=== PATIENT | female | born 1960 | race Caucasian/White ===

== ENCOUNTER 2017-07-19 20:09 | Emergency (ER) | payer OTHER, SELFPAY ==
[2017-07-19 20:13] VITALS: PULSE 104; RESP 20; TEMP 36.5; O2SAT 100
--- NOTE | 2017-07-19 20:18 | DI.RAD.S_ITS ---
PROCEDURE: XR RIBS BI MIN 4V W CXR1V INDICATIONS: fell forward on to chest, bilat rib pain TECHNIQUE: 5 views of the bilateral ribs were acquired, along with a single view chest. COMPARISON: [facility], , XR CHEST 2VW, 04/10/2015, 9:56. FINDINGS: Surgical changes and devices: None. Bones and chest wall: No displaced rib fracture identified. No suspicious bony lesions. Overlying soft tissues appear unremarkable. Lungs and pleura: No pleural effusions or pneumothorax. Lungs appear clear. Mediastinum: Mediastinal contours appear normal. Heart size is normal. IMPRESSION: 1. No displaced rib fracture identified. Dictated by: Antoine Khan M.D. on 07/19/2017 at 20:55 Approved by: Antoine Khan M.D. on 07/19/2017 at 21:04
--- NOTE | 2017-07-19 21:20 | ED.FALL ---
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 She denies any loss of consciousness, neck pain or back pain. She states she landed on the front of her chest and is worried about a fractured rib. She says is painful to take deep breaths. She has been taking ibuprofen and using ice for the pain. She states last time she fractured a rib and almost punctured her lungs so she is worried about that. She denies any shortness of breath, syncope, loss of consciousness, nausea, vomiting, diarrhea, headache. The pain is worst when she takes a deep breath and is localized on the frontal aspect of her rib cage on the left side. Related Data Allergies Allergy/AdvReac Type Severity Reaction Status Date / Time AMOXICILLIN Allergy Severe ANAPHYLAXIS, Uncoded 06/10/17 12:10 ITCHING, RASH, FACIAL SWELLING From LEVAQUIN Allergy Severe VOMITING Uncoded 06/10/17 12:10 MORPHINE Allergy Severe ANAPHYLAXIS Uncoded 06/10/17 12:10 OXYCODONE Allergy Severe ANAPHYLAXIS Uncoded 06/10/17 12:10 PENICILLIN Allergy Severe ANAPHYLAXIS Uncoded 06/10/17 12:10 SHELLFISH Allergy Severe ANAPHYLAXIS, Uncoded 06/10/17 12:10 MODERATE FACIAL SWELLING, ITCHING, RASH ASPARAGUS Allergy Intermediate ITCHING Uncoded 06/10/17 12:10 CEPHALOSPORIN Allergy Intermediate RASH, Uncoded 06/10/17 12:10 NAUSEA, VOMITING YOUNG Allergy Intermediate RASH, Uncoded 06/10/17 12:10 SWELLING MUSHROOM Allergy Intermediate RASH, Uncoded 06/10/17 12:10 HEADACHES CODEINE Allergy Unknown NAUSEA, Uncoded 06/10/17 12:10 VOMITING DARVOCET-N Allergy Unknown ITCHING, Uncoded 06/10/17 12:10 VOMITING ERYTHROMYCIN Allergy Unknown ITCHING, Uncoded 06/10/17 12:10 RASH, FACIAL SWELLING From DEMEROL Allergy Unknown HIVES Uncoded 06/10/17 12:10 From KEFLEX Allergy Unknown RASH, Uncoded 06/10/17 12:10 VOMITING From PERCOCET Allergy Unknown ITCHING, Uncoded 06/10/17 12:10 VOMITING From TORADOL Allergy Unknown MILD Uncoded 06/10/17 12:10 RESPIRATORY DISTRESS From VICODIN Allergy Unknown ITCHING, Uncoded 06/10/17 12:10 VOMITING IODINE Allergy Unknown ITCHING, Uncoded 06/10/17 12:10 RASH TYLOX Allergy Unknown RASH Uncoded 06/10/17 12:10 Review of Systems <[facility] - Last Filed: 07/19/17 22:45> Review of Systems GENERAL: See HPI HEENT: Denies sinus pain, ear pain, sore throat, difficulty swallowing, dizziness. RESPIRATORY: Denies dyspnea, cough, wheezing, hemoptysis, sputum. CARDIOVASCULAR: See HPI GASTROINTESTINAL: Denies nausea, vomiting, abdominal pain, diarrhea, constipation, melena. : Denies dysuria, frequency, incontinence, hematuria, urinary retention. MUSCULOSKELETAL: See HPI SKIN: Denies rash, skin lesions, or other NEUROLOGIC: Denies weakness, headache, numbness, change in speech, confusion, seizures, incoordination. PSYCHIATRIC: No concerning psychosocial issues. 12 point review of systems is negative except for those stated above Exam <[facility] - Last Filed: 07/19/17 22:45> Narrative Exam Narrative: GENERAL: This is a well-nourished, well-developed patient, no apparent distress sitting in chair HEAD: Atraumatic. Normocephalic. No temporal or scalp tenderness. EYES: Pupils equal round and reactive. Extraocular motions intact. No scleral icterus. No injection or drainage. ENT: Nose without bleeding, purulent drainage or septal hematoma. Throat without erythema, tonsillar hypertrophy or exudate. Uvula midline. Airway patent. NECK: Trachea midline. No JVD or lymphadenopathy. Supple, nontender, no meningeal signs. CARDIOVASCULAR: Regular rate and rhythm without murmurs, gallops, or rubs. RESPIRATORY: Clear to auscultation. Breath sounds equal bilaterally. No wheezes, rales, or rhonchi. GASTROINTESTINAL: Abdomen soft, non-tender, nondistended. No hepato-splenomegaly, or palpable masses. No guarding. Nonrigid. EXTREMITIES: No clubbing, cyanosis, or edema. No joint tenderness, effusion, or edema noted. BACK: Nontender without deformity or crepitance. No flank tenderness. No pain on C-spine or spinal palpation. NEURO: AOx3. SKIN: No rash or erythema. No ecchymosis, erythema or swelling noted on rib cage. CHEST WALL: Patient has pain on anterior posterior and lateral compression of chest wall. She has pain on palpation of left-sided ribs. Initial Vital Signs Initial Vital Signs: Vital Signs Temperature 97.7 F 07/19/17 20:13 Pulse Rate 104 H 07/19/17 20:13 Respiratory Rate 20 07/19/17 20:13 Pulse Oximetry 100 07/19/17 20:13 <Davion Cody MD - Last Filed: 07/31/17 08:31> Initial Vital Signs Initial Vital Signs: Vital Signs Temperature 97.7 F 07/19/17 20:13 Pulse Rate 104 H 07/19/17 20:13 Respiratory Rate 20 07/19/17 20:13 Pulse Oximetry 100 07/19/17 20:13 Course <JOYA Graham - Last Filed: 07/19/17 22:45> Hospital Course: Patient presents complaining of rib pain after fall. X-rays were obtained. She remained hemodynamically stable throughout her stay. She was offered ibuprofen, but she just took some prior to arrival. She had no questions or concerns upon discharge. Orders Ordered: ED Orders 07/19/17 20:18 XR ribs BI min 4V w CXR1V Stat Vital Signs - 8 hr 07/19/17 20:13 Temperature 97.7 F Pulse Rate 104 H Respiratory Rate 20 Pulse Oximetry 100 <Davion Cody MD - Last Filed: 07/31/17 08:31> Orders Ordered: ED Orders 07/19/17 20:18 XR ribs BI min 4V w CXR1V Stat Vital Signs - 8 hr 07/19/17 20:13 Temperature 97.7 F Pulse Rate 104 H Respiratory Rate 20 Pulse Oximetry 100 MDM - Fall <JOYA Graham - Last Filed: 07/19/17 22:45> Imaging Data Chest x-ray: Radiologist's impression: [address] [address] XRay Report Signed Patient: Suyapa Connor MR#: [id number] : 1960 Acct:[id number] Age/Sex: 56 / F Date of Service: 07/19/17 Loc: ED Accession Number: [id number] Procedure: XR ribs BI min 4V w CXR1V Ordering Provider: Davion Cody M.D. PROCEDURE: XR RIBS BI MIN 4V W CXR1V INDICATIONS: fell forward on to chest, bilat rib pain TECHNIQUE: 5 views of the bilateral ribs were acquired, along with a single view chest. COMPARISON: [facility], , XR CHEST 2VW, 04/10/2015, 9:56. FINDINGS: Surgical changes and devices: None. Bones and chest wall: No displaced rib fracture identified. No suspicious bony lesions. Overlying soft tissues appear unremarkable. Lungs and pleura: No pleural effusions or pneumothorax. Lungs appear clear. Mediastinum: Mediastinal contours appear normal. Heart size is normal. IMPRESSION: 1. No displaced rib fracture identified. Dictated by: Antoine Khan M.D. on 07/19/2017 at 20:55 Approved by: Antoine Khan M.D. on 07/19/2017 at 21:04 [facility] Narrative Medical decision making narrative: Patient presented after fall from lawdcower. She requested an x-ray to check for any rib fractures. An x-ray showed no displaced rib fractures at this time. She declined any further workup. She has been hemodynamically stable since her fall. She denies hitting her head or any neck or back pain. I discussed at length with her coming back for shortness of breath, dizziness, lightheadedness or chest pain. 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 She had no questions or concerns upon discharge. She will plan on taking [id number] pain medication as she is able given her allergies as well as using ice and rest. She will call her primary care provider tomorrow to arrange follow-up. Discharge Plan Departure Patient Disposition: Home, Self-Care Clinical Impression: Contusion Discharge Date/Time: 07/19/17 21:50 Interventions: ED Discharge Assessment Last Done: 07/19/17 21:49 Instructions: DI for Contusion, DI for Rib Contusion, DI for Sternum Contusion Activity Restrictions/Additional Instructions: Your x-ray showed no abnormality today. I suggest continued rest, ice, heat, [id number] pain medications as able. Follow up if you're not feeling better or if you are feeling worse. Definitely come back for any chest pain, shortness of breath, or any other acute concerns. Be sure to keep taking deep breaths as you can as we do not want you to developed pneumonia from not taking deep breaths. Referrals: Amol Mccartney MD [Primary Care Provider] - <Davion Cody MD - Last Filed: 07/31/17 08:31> Cosign ED Attending Cosignature Attestation: The PA/DANDY OPERATOR functioned independently for the care of this pt, I was available, but not asked to participate in care. I am unable to determine appropriateness of management without personally examining the pt.
== END 2017-07-19 21:50 | disposition home or self-care (01) ==
PROVIDERS: Emergency Provider Nurse Practitioner Family
DX: S20.219A Contusion of unspecified front wall of thorax, initial encounter (principal); W19.XXXA Unspecified fall, initial encounter
CPT/HCPCS: 71111; 99282; 99283

== ENCOUNTER 2018-07-28 19:02 | Emergency (ER) | payer OTHER, SELFPAY ==
[2018-07-28 19:12] VITALS: BP 132/86; PULSE 90; RESP 18; TEMP 36.1; O2SAT 98; BMI 39.1
[2018-07-28] MEDS: TET,DIPH,PERTUSS(ACELL),VAC/PF 0.5 ML SYRINGE IM (21:35)
[2018-07-28 22:02] VITALS: BP 119/77; PULSE 94; RESP 16; O2SAT 97
--- NOTE | 2018-07-28 22:20 | ED_ITS ---
HPI - Wound/Laceration <Madie De La Cruz, [employer] - Last Filed: 07/28/18 22:19> General Chief Complaint: Wound/Laceration Stated Complaint: left heel laceration x40 minutes Time Seen by Provider: 07/28/18 20:59 Source: patient Mode of arrival: ambulatory Limitations: no limitations History of Present Illness HPI narrative: The patient is a 57-year-old female current smoker with history rib contusion who presents with a chief complaint of a laceration to the left heel. She states that she cut it on a door at a restaurant. She does not or last tetanus was. She states she has full range of motion. She has no concern for body. She has not washed. She has iced it. Related Data Allergies Allergy/AdvReac Type Severity Reaction Status Date / Time AMOXICILLIN Allergy Severe ANAPHYLAXIS, Uncoded 06/10/17 12:10 ITCHING, RASH, FACIAL SWELLING From LEVAQUIN Allergy Severe VOMITING Uncoded 06/10/17 12:10 MORPHINE Allergy Severe ANAPHYLAXIS Uncoded 06/10/17 12:10 OXYCODONE Allergy Severe ANAPHYLAXIS Uncoded 06/10/17 12:10 PENICILLIN Allergy Severe ANAPHYLAXIS Uncoded 06/10/17 12:10 SHELLFISH Allergy Severe ANAPHYLAXIS, Uncoded 06/10/17 12:10 MODERATE FACIAL SWELLING, ITCHING, RASH ASPARAGUS Allergy Intermediate ITCHING Uncoded 06/10/17 12:10 CEPHALOSPORIN Allergy Intermediate RASH, Uncoded 06/10/17 12:10 NAUSEA, VOMITING YOUNG Allergy Intermediate RASH, Uncoded 06/10/17 12:10 SWELLING MUSHROOM Allergy Intermediate RASH, Uncoded 06/10/17 12:10 HEADACHES CODEINE Allergy Unknown NAUSEA, Uncoded 06/10/17 12:10 VOMITING DARVOCET-N Allergy Unknown ITCHING, Uncoded 06/10/17 12:10 VOMITING ERYTHROMYCIN Allergy Unknown ITCHING, Uncoded 06/10/17 12:10 RASH, FACIAL SWELLING From DEMEROL Allergy Unknown HIVES Uncoded 06/10/17 12:10 From KEFLEX Allergy Unknown RASH, Uncoded 06/10/17 12:10 VOMITING From PERCOCET Allergy Unknown ITCHING, Uncoded 06/10/17 12:10 VOMITING From TORADOL Allergy Unknown MILD Uncoded 06/10/17 12:10 RESPIRATORY DISTRESS From VICODIN Allergy Unknown ITCHING, Uncoded 06/10/17 12:10 VOMITING IODINE Allergy Unknown ITCHING, Uncoded 06/10/17 12:10 RASH TYLOX Allergy Unknown RASH Uncoded 06/10/17 12:10 Review of Systems <JOYA Graham - Last Filed: 07/28/18 22:19> Review of Systems GENERAL: Denies chills, fatigue, malaise, fever, sweats. HEENT: Denies sinus pain, ear pain, sore throat, difficulty swallowing, dizziness. RESPIRATORY: Denies dyspnea, cough, wheezing, hemoptysis, sputum. CARDIOVASCULAR: Denies chest pain, palpitations, orthopnea, edema, GASTROINTESTINAL: Denies nausea, vomiting, abdominal pain, diarrhea, constipation, melena. : Denies dysuria, frequency, incontinence, hematuria, urinary retention. MUSCULOSKELETAL: denies weakness, joint pain, or bony pain SKIN: See HPI NEUROLOGIC: Denies weakness, headache, numbness, change in speech, confusion, seizures, incoordination. PSYCHIATRIC: No concerning psychosocial issues. 12 point review of systems is negative except for those stated above PFSH <JOYA Graham - Last Filed: 07/28/18 22:19> Social History Smoking Status: Current some day smoker Social History Smoking Status: Current some day smoker Exam <JOYA Graham - Last Filed: 07/28/18 22:19> Narrative Exam Narrative: GENERAL: This is a well-nourished, well-developed patient, in no acute distress HEAD: Atraumatic. Normocephalic. No temporal or scalp tenderness. EYES: Pupils equal round and reactive. Extraocular motions intact. No scleral icterus. No injection or drainage. ENT: Nose without bleeding, purulent drainage or septal hematoma. Throat without erythema, tonsillar hypertrophy or exudate. Uvula midline. Airway patent. NECK: Trachea midline. No JVD or lymphadenopathy. Supple, nontender, no meningeal signs. CARDIOVASCULAR: Regular rate and rhythm RESPIRATORY: No cough. No increased respiratory effort. No accessory muscle use. EXTREMITIES: Positive pedal pulses left foot. Full range of motion noted left foot. BACK: Nontender without deformity or crepitance. No flank tenderness. NEURO: AOx3. SKIN: 1.5 by 0.25 cm avulsion to left heel. no redness or pus. Through dermis. No obvious foreign body. No muscle or tendon involvement. Initial Vital Signs Initial Vital Signs: Vital Signs Temperature 97 F L 07/28/18 19:12 Pulse Rate 90 07/28/18 19:12 Respiratory Rate 18 07/28/18 19:12 Blood Pressure 132/86 07/28/18 19:12 Pulse Oximetry 98 07/28/18 19:12 <Rogers Sorto DO - Last Filed: 07/28/18 23:46> Initial Vital Signs Initial Vital Signs: Vital Signs Temperature 97 F L 07/28/18 19:12 Pulse Rate 90 07/28/18 19:12 Respiratory Rate 18 07/28/18 19:12 Blood Pressure 132/86 07/28/18 19:12 Pulse Oximetry 98 07/28/18 19:12 Course <JOYA Graham - Last Filed: 07/28/18 22:19> Orders Ordered: Discontinued Medications Diphtheria/Tetanus/Acell Pertussis (Adacel) 0.5 ml IM .ONCE ONE Stop: 07/28/18 21:01 Last Admin: 07/28/18 21:35 Dose: 0.5 ml Vital Signs - 8 hr 07/28/18 19:12 07/28/18 22:02 Temperature 97 F L Pulse Rate 90 94 H Respiratory Rate 18 16 Blood Pressure 132/86 119/77 Pulse Oximetry 98 97 <Rogers Sorto DO - Last Filed: 07/28/18 23:46> Orders Ordered: Discontinued Medications Diphtheria/Tetanus/Acell Pertussis (Adacel) 0.5 ml IM .ONCE ONE Stop: 07/28/18 21:01 Last Admin: 07/28/18 21:35 Dose: 0.5 ml Vital Signs - 8 hr 07/28/18 19:12 07/28/18 22:02 Temperature 97 F L Pulse Rate 90 94 H Respiratory Rate 18 16 Blood Pressure 132/86 119/77 Pulse Oximetry 98 97 MDM - Wound/Laceration <JOYA Graham - Last Filed: 07/28/18 22:19> MDM Narrative Medical decision making narrative: The patient presents with an avulsion laceration to her heel. I was unable to suture this laceration. She was soaked in Hibiclens and warm water in her wound was flushed out for 25 minutes. Her tetanus was updated. I did dress the wound with Surgicel. Discussed at length monitoring for signs and symptoms of infection such as redness pus etc. Patient has no questions or concerns upon discharge. Encouraged follow-up with primary care provider. The patient declined x-ray. No questions or concerns upon discharge. Discussed return precautions to the ER including acute concerns such as chest pain shortness of breath Discharge Plan Departure Patient Disposition: Home Clinical Impression: Avulsion of skin Discharge Date/Time: 07/28/18 22:03 Interventions: ED Discharge Assessment Last Done: 07/28/18 22:02 Instructions: DI for Avulsion Laceration (Not Requiring Sutures) Activity Restrictions/Additional Instructions: Today we updated your tetanus. Please monitor your laceration for signs and symptoms of infection such as redness pus etc. Please follow up with primary care provider. Please come back to the emergency department for any acute concerns Referrals: Amol Mccartney MD [Primary Care Provider] - <Rogers Sorto DO - Last Filed: 07/28/18 23:46> Cosign ED Attending Solo Attestation: I was available for consultation during this patient's emergency department encounter
== END 2018-07-28 22:03 | disposition home or self-care (01) ==
PROVIDERS: Emergency Provider Nurse Practitioner Family
DX: S91.312A Laceration without foreign body, left foot, initial encounter (principal); Z23 Encounter for immunization
CPT/HCPCS: 90471; 99283; 90715

== ENCOUNTER → 2023-11-23 13:00 | Outpatient (CLI) | payer OTHER, SELFPAY ==
--- NOTE | 2023-11-23 13:01 | DI.MRI.S_ITS ---
PROCEDURE: MR CERVICAL SPINE WO CON INDICATIONS: RADICULOPATHY,CERVICAL TECHNIQUE: Noncontrast sagittal T1 spin echo and T2 fast spin echo, sagittal STIR, foraminal oblique sagittal T2 fast spin echo, and axial gradient echo or T2 fast spin echo through the cervical spine. COMPARISON: Outside Film, CT, CT LOW DOSE LUNG CA SCREENING, 06/12/2022, 8:45. FINDINGS: Image quality: Excellent. Alignment and Curvature: There is normal bony alignment. Bone Marrow: Marrow demonstrates normal overall signal. Mild superior endplate compression fractures of T4 and T5 of the localizer view (03/02) which were present on the 06/12/2022 low-dose chest CT. Spinal Cord: Visualized spinal cord has normal size and signal. No cerebellar tonsillar herniation. Paraspinous Soft Tissues: No paravertebral masses. Prevertebral soft tissues are normal in thickness. Left maxillary sinus mucosal thickening (5/17). C2-C3: No central canal stenosis. C3-C4: No central canal stenosis. No foraminal stenosis. C4-C5: Mild disc bulge. No central canal stenosis. No foraminal stenosis. C5-C6: Mild disc bulge with mild left foraminal zone protrusion. No central canal stenosis. Moderate left foraminal stenosis (8/11). Moderate right foraminal stenosis (7/5). C6-C7: Mild disc bulge with left foraminal zone protrusion. No central canal stenosis. Severe left foraminal stenosis (8/11). Mild right foraminal stenosis (7/5). C7-T1: No central canal stenosis. No foraminal stenosis. IMPRESSION: 1. Severe left foraminal stenosis at C6-C7. 2. Moderate bilateral foraminal stenosis at C5-C6. 3. Chronic superior endplate compression fractures of T4 and T5, dating back to 06/12/2022. Dictated by: Glynn Francisco M.D. on 11/24/2023 at 13:57 Approved by: Glynn Francisco M.D. on 11/24/2023 at 14:57
== END ==
PROVIDERS: Referring Provider Family Medicine; Visit Provider Family Medicine
DX: M54.12 Radiculopathy, cervical region (principal); M48.02 Spinal stenosis, cervical region; M48.54XA Collapsed vertebra, not elsewhere classified, thoracic region, initial encounter for fracture
CPT/HCPCS: 72141

== ENCOUNTER → 2023-12-17 13:42 | Outpatient (CLI) | payer OTHER, SELFPAY ==
--- NOTE | 2023-12-17 13:44 | DI.RAD.S_ITS ---
PROCEDURE: XR DEXA AXIAL SKELETON INDICATIONS: ASYMPTOMATIC MENOPAUSAL STATE COMPARISON: None. FINDINGS: Lumbar Spine: Bone mineral density 0.840 g/cm2, T score -1.9, osteopenia. Left Hip: Bone mineral density 0.732 g/cm2, T score -1.7, osteopenia. Left Femoral Neck: Bone mineral density 0.614 g/cm2, T score -2.1, osteopenia. Right Hip: Bone mineral density is 0.751 g/cm2, T score -1.6, osteopenia. Right Femoral Neck: Bone mineral density 0.654 g/cm2, T score -1.8, osteopenia. Fracture Risk Calculation (when applicable): 10-year fracture risk of a major osteoporotic fracture 15 percent and of a hip fracture 2.1 percent. (T score greater or equal to -1.0 to: NORMAL) (T score from -1.1 to -2.4: OSTEOPENIA) (T score less than or equal to -2.5: OSTEOPOROSIS) IMPRESSION: Osteopenia elevates the patient's 10 year fracture risk as described. Follow-up guidelines as follows: Osteoporosis: Consider a repeat DEXA and Vertebral Fracture Assessment (VFA) exam in 2 years or sooner if medically necessary, to reassess this patient's status. Osteopenia: Consider a repeat DEXA in 2-3 years to reassess this patient's status, or if there is a new clinical indication. Normal: Consider a repeat DEXA in 5 years or sooner, or if there is a new clinical indication. All treatment decisions require clinical judgment and consideration of individual patient factors, including patient preferences, comorbidities, previous drug use, risk factors not captured in the FRAX model (e.g., frailty, falls, vitamin D deficiency, increased bone turnover, interval significant decline in bone density ) and possible under- or over-estimation of fracture risk by FRAX. In addition, the NOF Guide recommends that FDA-approved medical therapies be considered in postmenopausal women and men age >= 50 years with a: * Hip or vertebral (clinical or morphometric) fracture * T-score of <=-2.5 at the spine or hip * Ten-year fracture probability by FRAX of >= 3% for hip fracture or >=20% for major osteoporotic fracture. People with diagnosed cases of osteoporosis or at high risk for fracture should have regular bone mineral density tests. For patients eligible for Medicare, routine testing is allowed once every 2 years. The testing frequency can be increased to one year for patients who have rapidly progressing disease, those who are receiving or discontinuing medical therapy to restore bone mass, or have additional risk factors. Dictated by: Lisha Lopez M.D. on 12/17/2023 at 17:55 Approved by: Lisha Lopez M.D. on 12/17/2023 at 17:56
== END ==
LOC: RAD 13:43
PROVIDERS: PCP Family Medicine; Referring Provider Family Medicine; Visit Provider Family Medicine
DX: M85.89 Other specified disorders of bone density and structure, multiple sites (principal); Z78.0 Asymptomatic menopausal state; Z92.21 Personal history of antineoplastic chemotherapy; M48.50XA Collapsed vertebra, not elsewhere classified, site unspecified, initial encounter for fracture
CPT/HCPCS: 77080